=== PATIENT | female | born 1955 | race African-American/Black ===

== ENCOUNTER 2021-03-04 18:28 | Inpatient (IN) | payer OTHER, MEDICAID ==
[~2021-03-04] VITALS: Ht 170.2 cm; Wt 106.7 kg
[2021-03-04] MEDS ORDERED: DILTIAZEM HCL 125 MG in DEXT 5% WATER 100 ML IV ONE (18:45)
[2021-03-04 19:19] LABS: BASOPHILS % 0.7 % (0.0-2.0); EOSINOPHILS % 0.1 % (0.0-5.0); HEMATOCRIT. 43.1 % (36.0-48.0); HEMOGLOBIN. 14.1 g/dL (12.0-16.0); LYMPHOCYTES % 9.6 % (20.0-50.0); MEAN CORPUSCULAR HEMOGLOBIN 28.5 pg (28.0-32.0); MEAN CORPUSCULAR VOLUME 86.9 fL (81.0-99.0); MEAN PLATELET VOLUME 8.5 fl (7.4-10.4); MONOCYTES % 6.1 % (2.0-8.0); NEUTROPHILS % 83.5 % (40.0-76.0); PLATELET 375 x1000/uL (130-400); RED BLOOD CELL COUNT 4.95 mill/uL (4.2-5.4); RED CELL DISTRIBUTION WIDTH 14.9 % (11.6-14.6)
[2021-03-04 19:24] LABS: CHLORIDE 101 mEq/L (98-107)
[2021-03-04 19:27] LABS: INR 1.1; PROTHROMBIN TIME 12.2 sec (9.6-11.0)
[2021-03-04 19:29] LABS: ETHANOL BLOOD < 10 mg/dL
[2021-03-04 19:51] LABS: DIGOXIN 0.2 ng/mL (0.9-2.0)
[2021-03-04] MEDS ORDERED: DIGOXIN 250MCG TABLET PO ONE (22:00)
[2021-03-04] MEDS ORDERED: DILTIAZEM HCL 5MG/ML 5ML VIAL IV ONE (22:15)
[2021-03-05] VITALS (7 sets, daily range): BP systolic 136–169; BP diastolic 73–90
[2021-03-05] MEDS ORDERED: ACETAMINOPHEN 325MG TABLET PO PRN (09:15)
[2021-03-05] MEDS ORDERED: DEXTROSE 50% WATER 50ML SYRINGE IV PRN (09:15)
[2021-03-05] MEDS ORDERED: ONDANSETRON HCL 4MG/2ML INJ IV PRN (09:15)
[2021-03-05] MEDS ORDERED: DIGOXIN 500MCG/2ML AMP IV NR (09:30)
[2021-03-05] MEDS ORDERED: ENOXAPARIN 150MG/ML SYR SUBCUT SCH (10:00)
[2021-03-05] MEDS: DILTIAZEM HCL 60MG TABLET PO SCH ×3 (10:52→21:30)
[2021-03-05] MEDS: BLOOD SUGAR DIAGNOSTIC STRIP TEST SCH ×3 (11:30→21:18)
[2021-03-05 12:15] LABS: CLARITY URINE CLEAR (CLEAR); COLOR URINE YELLOW (YELLOW); KETONES URINE 3+ (NEGATIVE); LEUKOCYTE ESTERASE URINE NEGATIVE (NEGATIVE); NITRITE URINE NEGATIVE (NEGATIVE); OCCULT BLOOD URINE NEGATIVE (NEGATIVE); PH URINE 5.5 (4.5-8.0); PROTEIN URINE TRACE (NEGATIVE); SPECIFIC GRAVITY URINE 1.041 (1.005-1.030)
[2021-03-05 12:32] LABS: *COCAINE SCREEN URINE NEGATIVE (NEGATIVE); METHADONE URINE SCREEN NEGATIVE (NEGATIVE); OPIATES URINE SCREEN NEGATIVE (NEGATIVE)
[2021-03-05 12:33] LABS: *AMPHETAMINES SCREEN URINE NEGATIVE (NEGATIVE); *BARBITURATES SCREEN URINE NEGATIVE (NEGATIVE); *BENZODIAZEPINES SCREEN URINE NEGATIVE (NEGATIVE); CANNABINOID URINE SCREEN NEGATIVE (NEGATIVE); PHENCYCLIDINE URINE SCREEN NEGATIVE (NEGATIVE)
[2021-03-05] MEDS ORDERED: LIRA0.6P SQ (14:35)
[2021-03-05] MEDS ORDERED: DIGO250T79 MT (14:35)
[2021-03-05] MEDS ORDERED: DABI150C PO (14:35)
[2021-03-05] MEDS ORDERED: METF-873 MT (14:35)
[2021-03-05] MEDS ORDERED: SPIR25TA PO (14:35)
[2021-03-05] MEDS ORDERED: HYDR100T26 MT (14:35)
[2021-03-05] MEDS ORDERED: ATOR20TA65 MT (14:35)
[2021-03-05] MEDS ORDERED: AMLO10TA4 MT (14:35)
[2021-03-05] MEDS ORDERED: BISO10TA11 PO (14:35)
[2021-03-05] MEDS ORDERED: FURO20TA4 MT (14:35)
[2021-03-05] MEDS ORDERED: LOSA100T32 MT (14:35)
[2021-03-05] MEDS: INSULIN LISPRO 100 UNITS/ML SUBCUT SCH ×3 (14:44→21:29)
[2021-03-05] MEDS ORDERED: *PATIENT'S OWN MEDICATION STORAGE XX SCH (15:15)
[2021-03-05] MEDS: DIGOXIN 125MCG TABLET PO SCH (17:22)
[2021-03-05] MEDS: NYSTATIN POWDER 15GM TOP SCH (20:42)
[2021-03-05] MEDS: ENOXAPARIN 120MG/0.8ML SYR SUBCUT SCH (21:30)
[2021-03-06] VITALS (13 sets, daily range): BP systolic 109–160; BP diastolic 41–100
[2021-03-06] MEDS: DILTIAZEM HCL 60MG TABLET PO SCH (05:09)
[2021-03-06] MEDS: BLOOD SUGAR DIAGNOSTIC STRIP TEST SCH ×4 (05:49→21:17)
[2021-03-06 07:52] LABS: BASOPHILS % 0.5 % (0.0-2.0); EOSINOPHILS % 0.9 % (0.0-5.0); HEMATOCRIT. 41.8 % (36.0-48.0); HEMOGLOBIN. 13.7 g/dL (12.0-16.0); LYMPHOCYTES % 11.6 % (20.0-50.0); MEAN CORPUSCULAR HEMOGLOBIN 28.5 pg (28.0-32.0); MEAN CORPUSCULAR VOLUME 86.8 fL (81.0-99.0); MEAN PLATELET VOLUME 8.8 fl (7.4-10.4); MONOCYTES % 8.2 % (2.0-8.0); NEUTROPHILS % 78.8 % (40.0-76.0); PLATELET 332 x1000/uL (130-400); RED BLOOD CELL COUNT 4.81 mill/uL (4.2-5.4); RED CELL DISTRIBUTION WIDTH 14.9 % (11.6-14.6)
[2021-03-06] MEDS: INSULIN LISPRO 100 UNITS/ML SUBCUT SCH ×4 (08:11→21:24)
[2021-03-06] MEDS: NYSTATIN POWDER 15GM TOP SCH ×2 (08:12→17:36)
[2021-03-06] MEDS: ENOXAPARIN 120MG/0.8ML SYR SUBCUT SCH ×2 (08:12→21:25)
[2021-03-06 08:14] LABS: CHLORIDE 101 mEq/L (98-107)
[2021-03-06] MEDS ORDERED: DIGOXIN 500MCG/2ML AMP IV SCH (09:15)
[2021-03-06] MEDS ORDERED: DILTIAZEM HCL 90MG TABLET PO SCH (09:30)
[2021-03-06] MEDS ORDERED: POTASSIUM CHLORIDE 20MEQ TABLET SR PO SCH (09:30)
[2021-03-06] MEDS ORDERED: FUROSEMIDE 20MG/2ML VIAL IVP SCH (11:00)
[2021-03-06] MEDS: SPIRONOLACTONE 25MG TABLET PO SCH (12:47)
[2021-03-06] MEDS: METOPROLOL TARTRATE 50MG TABLET PO SCH ×2 (12:48→21:25)
[2021-03-06] MEDS: DIGOXIN 125MCG TABLET PO SCH (17:35)
[2021-03-07] VITALS (10 sets, daily range): BP systolic 98–151; BP diastolic 54–82
[2021-03-07] MEDS: BLOOD SUGAR DIAGNOSTIC STRIP TEST SCH ×4 (06:59→21:22)
[2021-03-07] MEDS: INSULIN LISPRO 100 UNITS/ML SUBCUT SCH ×4 (07:20→21:38)
[2021-03-07] MEDS: METOPROLOL TARTRATE 50MG TABLET PO SCH (09:01)
[2021-03-07] MEDS: ENOXAPARIN 120MG/0.8ML SYR SUBCUT SCH ×2 (09:01→21:23)
[2021-03-07] MEDS: SPIRONOLACTONE 25MG TABLET PO SCH (09:01)
[2021-03-07] MEDS: NYSTATIN POWDER 15GM TOP SCH ×2 (09:02→18:07)
[2021-03-07] MEDS ORDERED: FUROSEMIDE 40MG/4ML VIAL IVP NR (10:15)
[2021-03-07] MEDS: DIGOXIN 125MCG TABLET PO SCH (18:06)
[2021-03-07] MEDS: ATORVASTATIN CALCIUM 40MG TABLET PO SCH (21:20)
[2021-03-07] MEDS: METOPROLOL TARTRATE 25MG TABLET PO SCH (21:22)
[2021-03-08] VITALS (10 sets, daily range): BP systolic 126–151; BP diastolic 37–84
[2021-03-08] MEDS: BLOOD SUGAR DIAGNOSTIC STRIP TEST SCH ×4 (06:56→21:00)
[2021-03-08] MEDS ORDERED: GADOTERATE MEGLUMINE 5 MMOL/10 ML VIAL IV ONE (08:57)
[2021-03-08] MEDS: FUROSEMIDE 40MG TABLET PO SCH (09:00)
[2021-03-08] MEDS: METOPROLOL TARTRATE 25MG TABLET PO SCH ×2 (10:03→22:18)
[2021-03-08] MEDS: ENOXAPARIN 120MG/0.8ML SYR SUBCUT SCH ×2 (10:03→22:18)
[2021-03-08] MEDS: SPIRONOLACTONE 25MG TABLET PO SCH (10:04)
[2021-03-08] MEDS: LOSARTAN POTASSIUM 25 MG TABLET PO SCH (10:04)
[2021-03-08] MEDS: INSULIN LISPRO 100 UNITS/ML SUBCUT SCH ×4 (10:05→22:20)
[2021-03-08] MEDS: NYSTATIN POWDER 15GM TOP SCH ×2 (10:06→17:50)
[2021-03-08] MEDS: DIGOXIN 125MCG TABLET PO SCH (17:49)
[2021-03-08] MEDS: ATORVASTATIN CALCIUM 40MG TABLET PO SCH (22:18)
[2021-03-09] VITALS (10 sets, daily range): BP systolic 104–155; BP diastolic 53–86
[2021-03-09] MEDS: BLOOD SUGAR DIAGNOSTIC STRIP TEST SCH ×4 (06:44→21:28)
[2021-03-09] MEDS: INSULIN LISPRO 100 UNITS/ML SUBCUT SCH ×4 (08:15→21:27)
[2021-03-09] MEDS: SPIRONOLACTONE 25MG TABLET PO SCH (08:17)
[2021-03-09] MEDS: METOPROLOL TARTRATE 25MG TABLET PO SCH ×2 (08:17→21:25)
[2021-03-09] MEDS: LOSARTAN POTASSIUM 25 MG TABLET PO SCH (08:17)
[2021-03-09] MEDS: ENOXAPARIN 120MG/0.8ML SYR SUBCUT SCH ×2 (08:18→21:24)
[2021-03-09] MEDS: NYSTATIN POWDER 15GM TOP SCH ×2 (08:18→16:56)
[2021-03-09] MEDS: FUROSEMIDE 40MG TABLET PO SCH (08:28)
[2021-03-09] MEDS ORDERED: INSULIN GLARGINE UD 100 UNITS/ML SYR SUBCUT NR ×2 (13:30→16:00)
[2021-03-09] MEDS: LAMOTRIGINE 25MG TABLET PO SCH (15:37)
[2021-03-09] MEDS: DIGOXIN 125MCG TABLET PO SCH (17:01)
[2021-03-09] MEDS: ATORVASTATIN CALCIUM 40MG TABLET PO SCH (21:25)
[2021-03-09] MEDS: INSULIN GLARGINE UD 100 UNITS/ML SYR SUBCUT SCH (21:27)
[2021-03-10] VITALS (12 sets, daily range): BP systolic 80–145; BP diastolic 48–91
[2021-03-10] MEDS: BLOOD SUGAR DIAGNOSTIC STRIP TEST SCH ×4 (06:54→21:55)
[2021-03-10] MEDS: INSULIN LISPRO 100 UNITS/ML SUBCUT SCH ×4 (07:20→21:00)
[2021-03-10] MEDS: FUROSEMIDE 40MG TABLET PO SCH (08:50)
[2021-03-10] MEDS: SPIRONOLACTONE 25MG TABLET PO SCH (08:51)
[2021-03-10] MEDS: LOSARTAN POTASSIUM 25 MG TABLET PO SCH (08:51)
[2021-03-10] MEDS: LAMOTRIGINE 25MG TABLET PO SCH (08:51)
[2021-03-10] MEDS: ENOXAPARIN 120MG/0.8ML SYR SUBCUT SCH ×2 (08:51→21:56)
[2021-03-10] MEDS: METOPROLOL TARTRATE 25MG TABLET PO SCH ×2 (08:52→21:58)
[2021-03-10] MEDS: NYSTATIN POWDER 15GM TOP SCH ×2 (08:52→17:38)
[2021-03-10] MEDS: INSULIN GLARGINE UD 100 UNITS/ML SYR SUBCUT SCH ×2 (09:50→21:59)
[2021-03-10] MEDS: DIGOXIN 125MCG TABLET PO SCH (17:38)
[2021-03-10] MEDS: ATORVASTATIN CALCIUM 40MG TABLET PO SCH (21:58)
[2021-03-11] VITALS (11 sets, daily range): BP systolic 97–160; BP diastolic 41–87
[2021-03-11] MEDS: BLOOD SUGAR DIAGNOSTIC STRIP TEST SCH ×4 (06:56→21:11)
[2021-03-11] MEDS: INSULIN LISPRO 100 UNITS/ML SUBCUT SCH ×4 (06:56→21:18)
[2021-03-11] MEDS: LAMOTRIGINE 25MG TABLET PO SCH (09:11)
[2021-03-11] MEDS: ENOXAPARIN 120MG/0.8ML SYR SUBCUT SCH ×2 (09:11→21:16)
[2021-03-11] MEDS: NYSTATIN POWDER 15GM TOP SCH ×2 (09:11→17:12)
[2021-03-11] MEDS: FUROSEMIDE 40MG TABLET PO SCH (09:11)
[2021-03-11] MEDS: SPIRONOLACTONE 25MG TABLET PO SCH (09:11)
[2021-03-11] MEDS: METOPROLOL TARTRATE 25MG TABLET PO SCH ×2 (09:11→21:17)
[2021-03-11] MEDS: LOSARTAN POTASSIUM 25 MG TABLET PO SCH (09:11)
[2021-03-11] MEDS: INSULIN GLARGINE UD 100 UNITS/ML SYR SUBCUT SCH ×2 (10:24→21:18)
[2021-03-11] MEDS: DIGOXIN 125MCG TABLET PO SCH (17:12)
[2021-03-11] MEDS: ATORVASTATIN CALCIUM 40MG TABLET PO SCH (21:16)
[2021-03-12] VITALS (11 sets, daily range): BP systolic 101–133; BP diastolic 49–79
[2021-03-12 07:13] LABS: BASOPHILS % 0.7 % (0.0-2.0); EOSINOPHILS % 2.1 % (0.0-5.0); HEMOGLOBIN. 13.3 g/dL (12.0-16.0); MEAN CORPUSCULAR HEMOGLOBIN 29.4 pg (28.0-32.0); MEAN CORPUSCULAR VOLUME 86.5 fL (81.0-99.0); MEAN PLATELET VOLUME 8.8 fl (7.4-10.4); MONOCYTES % 10.6 % (2.0-8.0); NEUTROPHILS % 47.6 % (40.0-76.0); PLATELET 279 x1000/uL (130-400); RED BLOOD CELL COUNT 4.51 mill/uL (4.2-5.4); RED CELL DISTRIBUTION WIDTH 14.5 % (11.6-14.6)
[2021-03-12 07:16] LABS: CHLORIDE 106 mEq/L (98-107)
[2021-03-12] MEDS: BLOOD SUGAR DIAGNOSTIC STRIP TEST SCH ×4 (07:18→21:47)
[2021-03-12] MEDS: INSULIN LISPRO 100 UNITS/ML SUBCUT SCH ×4 (07:18→21:49)
[2021-03-12] MEDS: LOSARTAN POTASSIUM 25 MG TABLET PO SCH (09:00)
[2021-03-12] MEDS: METOPROLOL TARTRATE 25MG TABLET PO SCH ×2 (09:00→21:48)
[2021-03-12] MEDS ORDERED: POTASSIUM CHLORIDE 20MEQ TABLET SR PO NR (09:15)
[2021-03-12] MEDS: LAMOTRIGINE 25MG TABLET PO SCH (09:35)
[2021-03-12] MEDS: ENOXAPARIN 120MG/0.8ML SYR SUBCUT SCH ×2 (09:35→21:47)
[2021-03-12] MEDS: FUROSEMIDE 40MG TABLET PO SCH (09:35)
[2021-03-12] MEDS: SPIRONOLACTONE 25MG TABLET PO SCH (09:36)
[2021-03-12] MEDS: INSULIN GLARGINE UD 100 UNITS/ML SYR SUBCUT SCH ×2 (09:37→21:49)
[2021-03-12] MEDS: NYSTATIN POWDER 15GM TOP SCH ×2 (09:37→18:07)
[2021-03-12] MEDS: DIGOXIN 125MCG TABLET PO SCH (18:07)
[2021-03-12] MEDS: ATORVASTATIN CALCIUM 40MG TABLET PO SCH (21:47)
[2021-03-13] VITALS (9 sets, daily range): BP systolic 102–157; BP diastolic 40–92
[2021-03-13] MEDS: BLOOD SUGAR DIAGNOSTIC STRIP TEST SCH ×2 (06:24→11:50)
[2021-03-13] MEDS: INSULIN LISPRO 100 UNITS/ML SUBCUT SCH ×2 (06:25→12:28)
[2021-03-13 06:50] LABS: CHLORIDE 110 mEq/L (98-107)
[2021-03-13] MEDS: LOSARTAN POTASSIUM 25 MG TABLET PO SCH (09:03)
[2021-03-13] MEDS: METOPROLOL TARTRATE 25MG TABLET PO SCH (09:03)
[2021-03-13] MEDS: FUROSEMIDE 40MG TABLET PO SCH (09:03)
[2021-03-13] MEDS: SPIRONOLACTONE 25MG TABLET PO SCH (09:03)
[2021-03-13] MEDS: LAMOTRIGINE 25MG TABLET PO SCH (09:03)
[2021-03-13] MEDS: ENOXAPARIN 120MG/0.8ML SYR SUBCUT SCH (09:04)
[2021-03-13] MEDS: NYSTATIN POWDER 15GM TOP SCH (09:04)
[2021-03-13] MEDS: INSULIN GLARGINE UD 100 UNITS/ML SYR SUBCUT SCH (09:05)
== END 2021-03-13 17:08 | DRG 64 ==
LOC: ER 18:28 → MICUSO 22:55 → 3WST 03-05 12:57
PROVIDERS: ADMIT Internal Medicine; ATTEND Internal Medicine
PROC: 4A10X4Z Monitoring of Central Nervous Electrical Activity, External Approach (ICD-10-PCS; principal; 2021-03-08)
DX: I63.9 Cerebral infarction, unspecified (principal); G93.41 Metabolic encephalopathy; I50.23 Acute on chronic systolic (congestive) heart failure; I48.20 Chronic atrial fibrillation, unspecified; E44.1 Mild protein-calorie malnutrition; I42.9 Cardiomyopathy, unspecified; I11.0 Hypertensive heart disease with heart failure; E11.65 Type 2 diabetes mellitus with hyperglycemia; Z20.822 Contact with and (suspected) exposure to COVID-19; I34.0 Nonrheumatic mitral (valve) insufficiency; I36.1 Nonrheumatic tricuspid (valve) insufficiency; E66.01 Morbid (severe) obesity due to excess calories; Z79.01 Long term (current) use of anticoagulants; Z91.14 Patient's other noncompliance with medication regimen; Z68.36 Body mass index [BMI] 36.0-36.9, adult
CPT/HCPCS: 36415; 70551; 70552; 71045; 80048; 80053; 80061; 80162; 80305; 80320; 81003; 82962; 83605; 83735; 83880; 84443; 84484; 85025; 87426; 92610; 93005; 93306; 93880; 95816; 97116; 97162; 97166; 97530; 99291; A9577; C1893; J1160; J1650; J1815; J1940; J3490; J7060; G0480

== ENCOUNTER 2022-11-20 09:43 | Emergency (ER) | payer OTHER, MEDICAID ==
[~2022-11-20] VITALS: Ht 165.1 cm; Wt 80.0 kg
[~2022-11-20 09:43] MED LIST: AMLO10TA4 MT; ATOR20TA65 MT; BISO10TA28 PO; DABI150C PO; DIGO250T79 MT; FURO20TA4 MT; HYDR100T26 MT; LIRA0.6P SQ; LOSA100T33 MT; METF-873 MT; SPIR25TA PO
[2022-11-20 09:44] VITALS: O2SAT 100
[2022-11-20 11:31] LABS: BASOPHILS % 0.1 % (0.0-2.0); EOSINOPHILS % 1.2 % (0.0-5.0); HEMATOCRIT. 35.9 % (36.0-48.0); HEMOGLOBIN. 11.9 g/dL (12.0-16.0); LYMPHOCYTES % 12.8 % (20.0-50.0); MEAN CORPUSCULAR HEMOGLOBIN 29.2 pg (28.0-32.0); MEAN CORPUSCULAR HGB CONC 33.2 g/dL (31.0-37.0); MEAN CORPUSCULAR VOLUME 87.9 fL (81.0-99.0); MEAN PLATELET VOLUME 7.8 fl (7.4-10.4); MONOCYTES % 7.3 % (2.0-8.0); NEUTROPHILS % 78.6 % (40.0-76.0); PLATELET 398 x1000/uL (130-400); RED BLOOD CELL COUNT 4.09 mill/uL (4.2-5.4); WHITE BLOOD COUNT 9.8 x1000/uL (4.5-11.0)
[2022-11-20 12:16] LABS: CHLORIDE 107 mEq/L (98-107); INDEX HEMOLYSI 2 (1-3); INDEX ICTERIC 1 (1-4); INDEX LIPEMIC 1 (1-3); SODIUM 133 mEq/L (136-145)
[2022-11-20 12:24] LABS: ALANINE AMINOTRANSFERASE 18 IU/L (13-61); ALBUMIN 3.5 g/dL (3.4-5.0); ASPARTATE AMINOTRANSFERASE 16 IU/L (15-37); BILIRUBIN TOTAL 0.7 mg/dL (0.1-1.0); CALCIUM 8.7 mg/dL (8.5-10.1); CARBON DIOXIDE 21 mEq/L (21-32); CREATININE 1.4 mg/dL (0.6-1.3); GLUCOSE 187 mg/dL (70-105); NT PRO B-TYPE NATRIURETIC PEP 330 pg/mL (5-125); PROTEIN TOTAL 7.6 g/dL (6.0-8.3); TROPONIN I HIGH SENSITIVITY 6 ng/L (<54); UREA NITROGEN BLOOD 35 mg/dL (7-21)
[2022-11-20] MEDS ORDERED: SODIUM CHLORIDE 0.9% 1,000 ML IV ONE (12:30)
[2022-11-20 14:00] VITALS: BP 92/43; PULSE 74; RESP 15; TEMP 98.7
== END 2022-11-20 17:07 | disposition short-term general hospital (02) ==
LOC: ER 10:06 → CANBEDREQ 13:32 → ER 17:07
DX: R55 Syncope and collapse (principal); R42 Dizziness and giddiness; I48.91 Unspecified atrial fibrillation; E11.9 Type 2 diabetes mellitus without complications; I10 Essential (primary) hypertension; Z86.73 Personal history of transient ischemic attack (TIA), and cerebral infarction without residual deficits; Z79.899 Other long term (current) drug therapy; Z20.822 Contact with and (suspected) exposure to COVID-19
CPT/HCPCS: 99285; 96360; 70450; 71045; 87426; 80053; 83880; 85025; 85379; 84484; 36415; 93005; J7030; C9803

== ENCOUNTER 2023-10-20 16:53 | Emergency (ER) | payer OTHER, MEDICAID ==
[~2023-10-20] VITALS: Ht 172.7 cm; Wt 77.0 kg
[2023-10-20 16:58] VITALS: O2SAT 96
[2023-10-20] MEDS: ONDANSETRON HCL 4MG/2ML INJ IV ONE ×2 (17:40→20:10)
[2023-10-20] MEDS: SODIUM CHLORIDE 0.9% 1,000 ML IV ONE (17:40)
[2023-10-20] MEDS: ACETAMINOPHEN 325MG TABLET PO ONE (17:41)
[2023-10-20 18:20] LABS: BASOPHILS % 0.6 % (0.0-2.0); EOSINOPHILS % 0.6 % (0.0-5.0); HEMATOCRIT. 48.8 % (36.0-48.0); LYMPHOCYTES % 7.4 % (20.0-50.0); MEAN CORPUSCULAR HEMOGLOBIN 28.8 pg (28.0-32.0); MEAN CORPUSCULAR HGB CONC 32.9 g/dL (31.0-37.0); MEAN CORPUSCULAR VOLUME 87.5 fL (81.0-99.0); MEAN PLATELET VOLUME 7.6 fl (7.4-10.4); MONOCYTES % 4.6 % (2.0-8.0); NEUTROPHILS % 86.8 % (40.0-76.0); PLATELET 305 x1000/uL (130-400); RED BLOOD CELL COUNT 5.57 mill/uL (4.2-5.4); RED CELL DISTRIBUTION WIDTH 14.3 % (11.6-14.6); WHITE BLOOD COUNT 11.1 x1000/uL (4.5-11.0)
[2023-10-20 18:26] LABS: CHLORIDE 103 mEq/L (98-107); POTASSIUM 3.8 mEq/L (3.5-5.1); SODIUM 138 mEq/L (136-145)
[2023-10-20 18:27] LABS: CARBON DIOXIDE 29 mEq/L (21-32)
[2023-10-20 18:28] LABS: CALCIUM 10.1 mg/dL (8.7-10.4)
[2023-10-20 18:32] LABS: CREATININE 0.8 mg/dL (0.6-1.0); GLUCOSE 149 mg/dL (70-105)
[2023-10-20 18:33] LABS: TROPONIN I HIGH SENSITIVITY 4 ng/L (3.0-34); UREA NITROGEN BLOOD 6 mg/dL (9-23)
[2023-10-20 18:34] LABS: ALANINE AMINOTRANSFERASE 15 IU/L (10-49); ALBUMIN 4.7 g/dL (3.2-4.8); ASPARTATE AMINOTRANSFERASE 20 IU/L (<34)
[2023-10-20 18:35] LABS: BILIRUBIN TOTAL 1.1 mg/dL (0.1-1.0); PROTEIN TOTAL 8.3 g/dL (6.0-8.3)
[2023-10-20] MEDS: MORPHINE SULFATE 4 MG/ML INJ (FOR IV/IM USE) IV ONE (20:09)
[2023-10-20 22:25] VITALS: BP 159/75; PULSE 109; RESP 17; TEMP 36.44736; O2SAT 97
== END 2023-10-20 22:42 | disposition short-term general hospital (02) ==
LOC: ER 16:53 → EDBEDREQ 21:02 → ER 22:42
DX: I48.91 Unspecified atrial fibrillation (principal); R55 Syncope and collapse; I10 Essential (primary) hypertension; E11.9 Type 2 diabetes mellitus without complications; Z20.822 Contact with and (suspected) exposure to COVID-19; Z79.899 Other long term (current) drug therapy; Z86.73 Personal history of transient ischemic attack (TIA), and cerebral infarction without residual deficits
CPT/HCPCS: 99285; 96374; 76705; 71045; 96361; 96375; 87426; 80053; 82962; 83690; 85025; 84484; 36415; 93005; J2405; J2270; J7030